=== PATIENT | male | born 1960 | race Caucasian/White ===

== ENCOUNTER 2021-06-28 14:06 | Emergency (ER) | payer OTHER ==
[~2021-06-28] VITALS: Ht 170.2 cm; Wt 87.5 kg
[2021-06-28] MEDS ORDERED: RELAFEN DS1000 MG PO (14:36)
== END 2021-06-28 17:36 | disposition home or self-care (01) ==
LOC: ER 14:06
DX: U07.1 COVID-19 (principal)

== ENCOUNTER 2021-07-01 12:30 | Outpatient (CLI) | payer OTHER ==
[~2021-07-01 12:30] MED LIST: RELAFEN DS1000 MG PO
== END 2021-07-01 13:30 | disposition home or self-care (01) ==
LOC: ASH CLINIC 12:30
PROVIDERS: ATTEND Emergency Medicine
DX: U07.1 COVID-19 (principal); Z23 Encounter for immunization

== ENCOUNTER 2021-09-28 10:41 | Emergency (ER) | payer OTHER ==
[~2021-09-28] VITALS: Ht 170.2 cm; Wt 85.3 kg
== END 2021-09-28 12:36 | disposition home or self-care (01) ==
LOC: ER
DX: S00.93XA Contusion of unspecified part of head, initial encounter (principal); S80.01XA Contusion of right knee, initial encounter; S60.221A Contusion of right hand, initial encounter; W18.30XA Fall on same level, unspecified, initial encounter; Y92.480 Sidewalk as the place of occurrence of the external cause; Y99.9 Unspecified external cause status; M12.569 Traumatic arthropathy, unspecified knee